=== PATIENT | male | born 1950 | race African-American/Black ===

== ENCOUNTER 2016-10-29 21:07 | Inpatient (IN) | payer BC ==
--- NOTE | ~2016-10-29 | CR72 ---
[facility] A Service of [place] & [facility] RADIOLOGY TEXT RESULTS PATIENT: GEOVANNI ROA LOCATION: [facility] 56- : [birth year] UNIT #: [id number] AGE: [address]: Saranya Yuen MD SEX: M ORDER DR: [id number] [facility] [address] [place], [place] [address] [id number] I MR#: [id number] #: [id number] NAME: GEOVANNI ROA. : 1950 SEX: M STUDY DATE/TIME: 11/01/2016 14:49 UNIT: [facility] ROOM: [facility] STUDY DESCRIPTION: CR Chest Single View Portable Attending Physician: Saranya Yuen M.D. Ordering Physician: Saranya Yuen M.D. Primary Care Physician: Ta Simpson M.D. MEDICAL IMAGING REPORT This report is preliminary unless electronic signature is present EXAM Portable chest HISTORY Shortness of air today. FINDINGS Mild cardiac enlargement is similar to 10/29/2016. Pulmonary vascularity is normal. Mild interstitial prominence in the left upper lobe has increased, and there has been partial clearing of interstitial infiltrate in the right lower lung. Sternotomy and CABG markers and mediastinal clips. IMPRESSION 1. Mild interval increase in interstitial prominence in the left upper lobe and partial clearing of the right lower lung as compared to 10/29/2016. 2. Remainder of the chest is stable including mild cardiac enlargement. Dictated by... Bladimir Hobson M.D. THIS IS AN ELECTRONICALLY VERIFIED REPORT Bladimir Hobson M.D. at 11/01/2016 10:38 PM ALEXIAL/brittney TD: 11/01/2016 18:54 JOB #: [id number] MEDICAL IMAGING REPORT Page 1 of 1 COPY
--- NOTE | ~2016-10-29 | EKG ---
PATIENT: GEOVANNI ROA UNIT #: [id number] Ventricular Rate: 72 BPM Atrial Rate: 72 BPM P-R Interval: 160 ms QRS Duration: 98 ms Q-T Interval: 424 ms QTC Calculation(Bezet): 464 ms P [place]: 39 degrees Calculated R [place]: -32 degrees Calculated T [place]: -174 degrees Diagnosis Line: Normal sinus rhythm Diagnosis Line: Left axis deviation Diagnosis Line: Voltage criteria for left ventricular hypertrophy Diagnosis Line: Marked T wave abnormality, consider anterolateral Diagnosis Line: ischemia Diagnosis Line: Prolonged QT Diagnosis Line: Abnormal ECG Diagnosis Line: When compared with ECG of 31-OCT-2016 05:33, Diagnosis Line: No significant change was found Diagnosis Line: Confirmed by ALEC ANDERSON MD ([id number]) on 11/02/2016 Diagnosis Line: 6:37:37 PM INTERPRETING MD: MONICA RANGEL
--- NOTE | ~2016-10-29 | EKG ---
PATIENT: GEOVANNI ROA UNIT #: [id number] Ventricular Rate: 99 BPM Atrial Rate: 99 BPM P-R Interval: 142 ms QRS Duration: 96 ms Q-T Interval: 332 ms QTC Calculation(Bezet): 426 ms P [place]: 63 degrees Calculated R [place]: -20 degrees Calculated T [place]: -69 degrees Diagnosis Line: Normal sinus rhythm Diagnosis Line: Possible Left atrial enlargement Diagnosis Line: Left ventricular hypertrophy Diagnosis Line: Cannot rule out Septal infarct , age undetermined Diagnosis Line: ST and T wave abnormality, consider inferior Diagnosis Line: ischemia Diagnosis Line: ST and T wave abnormality, consider anterolateral Diagnosis Line: ischemia Diagnosis Line: Abnormal ECG Diagnosis Line: When compared with ECG of 02-NOV-2016 05:30, Diagnosis Line: (unconfirmed) Diagnosis Line: Minimal criteria for Septal infarct are now Diagnosis Line: Present Diagnosis Line: Inverted T waves have replaced nonspecific T wave Diagnosis Line: abnormality in Inferior leads Diagnosis Line: T wave inversion less evident in Lateral leads Diagnosis Line: Confirmed by ALEC ANDERSON MD ([id number]) on 11/02/2016 Diagnosis Line: 6:50:52 PM INTERPRETING MD: MONICA RANGEL
--- NOTE | ~2016-10-29 | EKG ---
PATIENT: GEOVANNI ROA UNIT #: [id number] Ventricular Rate: 85 BPM Atrial Rate: 85 BPM P-R Interval: 142 ms QRS Duration: 92 ms Q-T Interval: 390 ms QTC Calculation(Bezet): 464 ms P [place]: 55 degrees Calculated R [place]: -35 degrees Calculated T [place]: 177 degrees Diagnosis Line: Normal sinus rhythm Diagnosis Line: Left axis deviation Diagnosis Line: T wave abnormality, consider anterolateral Diagnosis Line: ischemia Diagnosis Line: Prolonged QT Diagnosis Line: Abnormal ECG Diagnosis Line: When compared with ECG of 29-OCT-2016 21:45, Diagnosis Line: PAC's no t present Diagnosis Line: T wave inversion less evident in Inferior leads Diagnosis Line: Confirmed by DAPHNE ELI MD ([id number]) on Diagnosis Line: 10/31/2016 10:12:08 PM INTERPRETING MD: WEST[place]
--- NOTE | ~2016-10-29 | TOC ---
Unit #: [id number] #: [id number] Patient: GEOVANNI ROA [id number] [address] [address] [id number] I MR#: [id number] NAME: GEOVANNI ROA. ROOM: 563 Age: 66 Sex: M Admission Date: 10/30/2016 : 1950 Attending Physician: Saranya Yuen M.D. Primary Care Physician: Ta Simpson M.D. TRANSFER OF CARE SUMMARY PRINCIPAL DIAGNOSES 1. Acute systolic congestive heart failure with ejection fraction of 15 to 20%. 2. Coronary artery disease, status post stenting and percutaneous coronary intervention of the obtuse marginal and proximal left circumflex, first diagonal and ramus branch. 3. Hypertension, uncontrolled. 4. Diabetes mellitus type 2, noninsulin requiring, uncontrolled with hemoglobin A1c of 5.8. 5. Transaminitis likely secondary to passive liver congestion. 6. Viral hepatitis panel is pending. 7. Moderate mitral regurgitation. 8. Moderate aortic regurgitation. 9. Chronic obstructive pulmonary disease 10. Pulmonary hypertension. 11. Tobaccoism. 12. Post cath hypotension, likely medication induced. 13. Mild protein malnutrition. CONSULTANTS Dr. Sheffield of cardiology. PROCEDURES 1. 2D echocardiogram on 10/30/2016 with ejection fraction of 15% to 20%, severe global hypokinesis of left ventricle noted. Mild to moderately dilated left atrium and mild to moderately enlarged right atrium noted. Mild to moderate aortic regurgitation noted. Moderate mitral regurgitation noted. Mild to moderate tricuspid regurgitation. Right ventricular systolic pressure of 44 mmHg. 2. Heart cath on 10/31/2016 with a normal left main. LAD had a stenosis in the mid region of approximately 80%. First diagonal had 90% stenosis. Left circumflex was 100% occluded distally. First obtuse marginal had 90% stenosis. Right coronary artery was dominant with a 90% stenosis in the mid region. SVG graft to RCA was 100% occluded. SVG graft to first diagonal 100% occluded. SVG graft to first obtuse marginal 100% occluded. WOODY to LAD was patent. Ejection fraction was 20%. 3. Heart cath on 11/02/2016 with stenting an PCI of the first obtuse marginal and left circumflex with subsequent 0% stenosis, stenting and PCI of first diagonal with subsequent 0% stenosis and stenting and PCI of ramus with subsequent 0% stenosis. 4. Chest x-ray on 10/29/2016 with interstitial infiltrate in the right lower lung in left mid to lower lung. 5. Chest x-ray on 11/01/2016 with increase in prominence of the left upper Unit #: [id number] #: [id number] Patient: GEOVANNI ROA A lobe and partial clearing of right lower lung. CLINICAL HISTORY AND HOSPITAL COURSE Mr. Roa is a nice 66-year-old -Gabones[place] male who presents to the emergency department with shortness of breath and lower extremity swelling. Please refer to H and P for further details. In the emergency department, the patient was found to have clinically pulmonary edema, which was confirmed on chest x-ray. BNP was also found to be elevated greater than 2600. The patient was subsequently admitted. The patient was started on empiric diuretics, initially AYDIN inhibitor, beta-sagar and cardiology was consulted. Patient has had angioedema with AYDIN inhibitor and he was subsequently started on Entresto. 2D echocardiogram was done revealing significantly decreased ejection fraction. Patient has been maintained on IV diuretics in addition to medication and CHF has essentially resolved. The patient also has a history of coronary artery disease, status post grafting. Given his significant CHF, in addition to her mildly elevated troponin, upon presentation it was decided for patient to undergo heart cath. He initially underwent heart cath on 10/31/2016 with findings as noted above and initially plans were for medical management only. However, after further discussion with patient, in addition to his severe degree of congestive heart failure, he underwent second heart cath with stenting and PCI on 11/02/2016. Post procedure, he had some mild hypotension, which was likely a combination of diuretic induced in addition to his new Entresto. Medications are currently being adjusted. He was placed on dopamine post procedure. This is currently being titrated and blood pressure will be monitored closely upon discontinuation. Patient does have underlying COPD and he has been counseled regarding tobacco abuse, which he did quit approximately a week ago. Patient also has underlying diabetes but sugars here remained very stable. I do not personally feel he needs metformin upon discharge, particularly given is not contraindicated with his significant congestive heart failure. Patient also has a history of hypertension, which was initially uncontrolled upon presentation; however, medications have been adjusted as above. He had some hypotension and blood pressure is not stable. Patient also had some mild transaminitis and with diuresis this is improved. Viral hepatitis panel is currently pending. I anticipate patient will be discharged home in the next 24-48 hours pending stability of blood pressure. Further hospital course to be dictated as an addendum. Dictated by... Saranya Yuen M.D. JOSE/catalina TD: 11/03/2016 12:29 JOB #: [id number] Unit #: [id number] #: [id number] Patient: GEOVANNI ROA TRANSFER OF CARE SUMMARY Page 1 of 1 X Saranya Yuen MD X TRANSFER OF CARE SUMMARY
--- NOTE | ~2016-10-29 | EKG ---
PATIENT: GEOVANNI ROA UNIT #: [id number] Ventricular Rate: 55 BPM Atrial Rate: 55 BPM P-R Interval: 144 ms QRS Duration: 96 ms Q-T Interval: 438 ms QTC Calculation(Bezet): 419 ms P [place]: 55 degrees Calculated R [place]: -38 degrees Calculated T [place]: -134 degrees Diagnosis Line: Sinus bradycardia Diagnosis Line: Left axis deviation Diagnosis Line: Minimal voltage criteria for LVH, may be normal Diagnosis Line: variant Diagnosis Line: ST and Marked T wave abnormality, consider Diagnosis Line: anterolateral ischemia Diagnosis Line: Abnormal ECG Diagnosis Line: When compared with ECG of 02-NOV-2016 10:39, Diagnosis Line: Vent. rate has decreased BY 44 BPM Diagnosis Line: T wave inversion more evident in Anterior leads Diagnosis Line: Confirmed by ALEC ANDERSON MD ([id number]) on 11/05/2016 Diagnosis Line: 4:20:04 PM INTERPRETING MD: MONICA RANGEL
--- NOTE | ~2016-10-29 | DS ---
Unit #: [id number] #: [id number] Patient: GEOVANNI ROA [id number] [address] [address] [id number] I MR#: [id number] NAME: GEOVANNI ROA. ROOM: 563 Age: 66 Sex: M Admission Date: 10/30/2016 : 1950 Discharge Date: Attending Physician: Saranya Yuen M.D. Primary Care Physician: Ta Simpson M.D. DISCHARGE SUMMARY ADDENDUM Please see Transfer of Care note dictated by Dr. Yuen. HOSPITAL COURSE Since November 03, 2016, patient was not discharged at that time because of hypotension from Entresto. The patient was started on dopamine. Currently, dopamine has been titrating off. The patient will be discharged later today after seen by cardiology. Currently, no chest pain, no shortness of breath. Lungs are clear. Regular rhythm, no murmurs. RECENT LAB DATA Glucose 126. Hepatitis negative. BNP 341. Creatinine 1.0. ALLERGIES Lisinopril. DISCHARGE MEDICATIONS 1. Entresto , one tablet p.o. b.i.d. 2. Metformin 500 p.o. b.i.d. 3. Lopressor 24 p.o. b.i.d. 4. Lasix 40 p.o. b.i.d. 5. Aspirin 81 daily. 6. Plavix 75 daily. 7. Spironolactone 25 daily. The patient will be discharged home later today after seen by cardiology. Prescriptions as per cardiology. Follow with family physician in one week time. Discharge time taken is 32 minutes. Dictated by... Rodo Burns TD: 11/04/2016 12:30 JOB #: [id number] Unit #: [id number] #: [id number] Patient: GEOVANNI ROA DISCHARGE SUMMARY Page 1 of 1 X Alondra Dubon MD DISCHARGE SUMMARY
--- NOTE | ~2016-10-29 | EKG ---
PATIENT: GEOVANNI ROA UNIT #: [id number] Ventricular Rate: 86 BPM Atrial Rate: 86 BPM P-R Interval: 152 ms QRS Duration: 90 ms Q-T Interval: 390 ms QTC Calculation(Bezet): 466 ms P [place]: 38 degrees Calculated R [place]: -4 degrees Calculated T [place]: -151 degrees Diagnosis Line: Sinus rhythm with frequent and consecutive Diagnosis Line: Premature ventricular complexes and Fusion Diagnosis Line: complexes Diagnosis Line: Possible Left atrial enlargement Diagnosis Line: Left ventricular hypertrophy Diagnosis Line: When compared with ECG of 22-APR-2012 22:24, Diagnosis Line: Confirmed by SURY UNGER MD ([id number]) on Diagnosis Line: 10/30/2016 3:41:43 PM INTERPRETING MD: CORNEL RANGEL
--- NOTE | ~2016-10-29 | CR72 ---
[facility]. [facility] A Service of [facility] & [facility] RADIOLOGY TEXT RESULTS PATIENT: GEOVANNI ROA LOCATION: [place] [id number] : [birth year] UNIT #: [id number] AGE: [address]: Saranya Yuen MD SEX: M ORDER DR: [id number] [place] [id number] I MR#: [id number] Acc #: [id number] NAME: GEOVANNI ROA. : 1950 SEX: M STUDY DATE/TIME: 10/29/2016 21:35 UNIT: SEDOF ROOM: [facility] STUDY DESCRIPTION: CR Chest Single View Portable Attending Physician: Mary Trevino M.D. Ordering Physician: Chele Atkinson M.D. Primary Care Physician: Ta Simpson M.D. MEDICAL IMAGING REPORT This report is preliminary unless electronic signature is present. EXAM Portable chest HISTORY Shortness of air today. FINDINGS Moderate interstitial infiltrate in the medial right lower lung and mild interstitial infiltrate in the left [id number] lung are new findings compared to 05/01/2012. Considerations include interstitial pneumonia versus edema or scarring. Minimal fluid or pleural thickening at the right base. Mild cardiac enlargement. Stable chronic pleural thickening in the lung apices. Dictated by... Bladimir Hobson M.D. THIS IS AN ELECTRONICALLY VERIFIED REPORT Bladimir Hobson M.D. at 10/30/2016 3:06 PM DFL/fely TD: 10/30/2016 08:16 JOB #: [id number] MEDICAL IMAGING REPORT Page 1 of 1
--- NOTE | ~2016-10-29 | HP ---
Unit #: [id number] #: [id number] Patient: GEOVANNI ROA [id number] [address] [place], [place] [address] [id number] I MR#: [id number] NAME: GEOVANNI ROA. ROOM: 563 Age: 66 Sex: M Admission Date: 10/30/2016 : 1950 Attending Physician: Saranya Yuen M.D. Primary Care Physician: Ta Simpson M.D. HISTORY AND PHYSICAL CHIEF COMPLAINT Shortness of breath. HISTORY OF PRESENT ILLNESS Mr. Roa is a nice 66-year-old male with a history of coronary artery disease status post coronary artery bypass grafting who presents to the ER for above. The patient states he began feeling short of breath approximately 5 days ago. He noticed his shortness of breath initially while he was standing on his feet at work being active. There was no associated chest pain at that time. However, he noted recurrent shortness of breath on Sunday and worse on Sunday and began developing lower extremity edema, as well. He did have a cough that was nonproductive. He did have one episode of sweating but did not take his temperature. He endorses some orthopnea and noted he was having some chest pressure substernally last evening when he decided to present to the ER. He denies any sick contacts. Upon presentation, the patient was afebrile, and blood pressure was elevated at 154/118. In the emergency department the patient underwent chest x-ray revealing questionable left lower lobe infiltrate consistent with pneumonia versus pulmonary edema. He was given 325 mg of aspirin, 10 mg of Lopressor IV, DuoNeb treatment, 40 mg of Lasix, 2 grams of Rocephin IV, 500 azithromycin p.o., sublingual nitroglycerin and referred for admission. He states his shortness of breath is better after urinating. As noted above, he does have a history of coronary artery disease and has not routinely been seen by a ip network architect since his heart surgery. PAST MEDICAL HISTORY 1. Coronary artery disease status post coronary artery bypass grafting x3. No details are available. This was done in 2011 at [facility]. 2. Diabetes mellitus type 2. 3. Hypertension. 4. Tobaccoism. 5. Questionable congestive heart failure. Patient states he may have been diagnosed with this when he had his heart attack 5 years ago. PAST SURGICAL HISTORY 1. Coronary artery bypass grafting x3. 2. Hernia repair per record review. ALLERGIES No known drug allergies. HOME MEDICATIONS Unit #: [id number] #: [id number] Patient: GEOVANNI ROA Metformin, unknown dose. FAMILY HISTORY Family history is significant for coronary artery disease in the patient's mother and brother. Both of them had coronary artery bypass grafting x3. Diabetes and hypertension also run in the family. No family history of cancers. SOCIAL HISTORY Patient continues to smoke a pack of cigarettes per day and has for at least 20 years. He did quit last week when he started feeling short of breath. He has not drunk any alcohol since his heart surgery in 2011. Prior to that, he was a social drinker only. 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 REVIEW OF SYSTEMS Did have one episode of sweating. Denies any recent weight gain or weight loss. Denies any vision change or sore throat. Denies any palpitations but did have an episode of chest pressure, which is now resolved. Shortness of breath and orthopnea as noted. Cough is nonproductive. Denies any constipation, diarrhea, melena, hematochezia, hematuria, dysuria, new tingling, numbness, weakness of extremities. Denies any falls at home. No suicidal or homicidal ideation. No new joint pain. A 10-point review of systems was done and was negative. PHYSICAL EXAMINATION VITAL SIGNS: Temperature 97.6, blood pressure 154/100, pulse rate 86, respiratory rate 18, oxygen saturation 96% on room air. GENERAL: The patient is awake, alert. He is oriented x3 and very pleasant. HEENT: Pupils are equal, round and reactive to light bilaterally. Anicteric sclera. No conjunctival pallor. Oropharynx with moist mucous membranes. No erythema or exudate. Dentition is poor, and several teeth are missing. NECK: Supple. No lymphadenopathy. No thyromegaly. No appreciable JVD. HEART: Regular rate and rhythm without murmur, rub or gallop. LUNGS: Diminished bilaterally with significant crackles in the bases bilaterally. Occasional rhonchi in the bases, as well. ABDOMEN: Soft, nontender and nondistended. Positive bowel sounds. No appreciable hepatosplenomegaly. EXTREMITIES: No cyanosis, clubbing or edema. Pedal pulses 2/4. SKIN: Warm, moist without rash. There are a few healing scabs on the lower extremities. NEUROLOGIC: Cranial nerves II-XII intact. Sensation, strength and deep tendon reflexes are all normal in upper and lower extremities bilaterally. Gait was not assessed. MUSCULOSKELETAL: No significant joint abnormalities noted. No joint erythema. No significant joint hypertrophy. PSYCHIATRIC: Appropriate affect. Alert and oriented x3. DIAGNOSTIC STUDIES LABORATORY: Lab work done in the emergency department reveals initial troponin of less than 0.05, and this morning it is now elevated mildly at 0.11. INR is 1.2. CBC, both last evening and this morning, are normal with a white blood cell count of 8.3, hemoglobin 14, platelet count 264,000. Sodium is 139, potassium 3.6, chloride 104, bicarb 26, BUN 15, creatinine 1.1 (up from 0.9 last evening), glucose of 89. LFTs last evening are mildly elevated with an AST of 83, ALT of 125 and alkaline Unit #: [id number] #: [id number] Patient: GEOVANNI ROA A phosphatase of 151, albumin was normal at 3.5 and bilirubin was also normal. BNP done last evening is elevated at 2,657. IMAGING: Chest x-ray done in the emergency department reveals interstitial infiltrate in the right lower lung and left mjp-vb-ovyod lung. Mild cephalization is also noted on chest x-ray. Dictated by Saranya Yuen M.D. JOSE/agatha TD: 10/30/2016 10:03 JOB #: [id number] DIAGNOSTIC STUDIES (CONTINUED) CARDIOVASCULAR: EKG reveals normal sinus rhythm with PVCs. There is a left bundle branch block. There is T wave inversion noted in V1-V4, and patient also has ST segment depression in V4-V6, II, III, and AVF. There is no comparison EKG. ASSESSMENT 1. Acute pulmonary edema likely consistent with congestive heart failure exacerbation. 2. Elevated troponin of undetermined significance in combination with abnormal EKG. 3. Hypertension, uncontrolled. 4. Coronary artery disease, status post coronary artery bypass grafting x3. 5. Transaminitis. 6. Diabetes mellitus type 2. 7. Tobaccoism. 8. Probable chronic obstructive pulmonary disease. PLAN 1. Will admit patient to inpatient status with telemetry. 2. I will initiate Lasix 20 mg IV q.12 hours, obtain strict I/Os and a two-dimensional echocardiogram, and ask Cardiology to further evaluate the patient. I am also going to initiate AYDIN inhibitor and obtain records from [facility] in regards to his history of surgery. 3. Will check serial troponins, provide nitroglycerin, aspirin, and morphine, and again, have Cardiology follow. 4. In regards to hypertension, initiate AYDIN inhibitor, provide hydralazine on p.r.n. basis, and will initiate further diuretics and/or beta sagar as testing and further monitoring indicates. 5. Will follow LFT levels and obtain viral hepatitis panel. 6. Will hold metformin for now. Will obtain insulin and Accu-Cheks, in addition to a hemoglobin A1c. 7. Will obtain fasting lipid panel in the morning. 8. Lovenox for DVT prophylaxis. Will increase this dosing if necessary. 1. Dictated by Saranya Yuen M.D. JOSE/frederick Unit #: [id number] #: [id number] Patient: GEOVANNI ROA TD: 10/30/2016 17:03 JOB #: [id number] HISTORY AND PHYSICAL Page 1 of 1 X Saranya Yuen MD X HISTORY AND PHYSICAL
--- NOTE | ~2016-10-29 | EKG ---
PATIENT: GEOVANNI ROA UNIT #: [id number] Ventricular Rate: 80 BPM Atrial Rate: 80 BPM P-R Interval: 154 ms QRS Duration: 94 ms Q-T Interval: 392 ms QTC Calculation(Bezet): 452 ms P [place]: 37 degrees Calculated R [place]: -37 degrees Calculated T [place]: -174 degrees Diagnosis Line: Normal sinus rhythm Diagnosis Line: Possible Left atrial enlargement Diagnosis Line: Left axis deviation Diagnosis Line: Left ventricular hypertrophy Diagnosis Line: T wave abnormality, consider anterolateral Diagnosis Line: ischemia Diagnosis Line: Abnormal ECG Diagnosis Line: Diagnosis Line: Confirmed by ALEC ANDERSON MD ([id number]) on 11/02/2016 Diagnosis Line: 6:46:33 PM INTERPRETING MD: MONICA RANGEL
--- NOTE | ~2016-10-29 | CO ---
Unit #: [id number] #: [id number] Patient: GEOVANNI ROA [id number] [address] [place], [place] [address] [id number] MR#: [id number] NAME: GEOVANNI ROA. ROOM: 563 Age: 66 Sex: M Admission Date: 10/30/2016 : 1950 Attending Physician: Saranya Yuen M.D. Primary Care Physician: Ta Simpson M.D. CONSULTATION REPORT REASON FOR CONSULTATION Acute congestive heart failure and chest pain. HISTORY OF PRESENT ILLNESS This is a 66-year-old male with a history of having coronary artery bypass graft back in 2013. He thinks he may have had a stress test about a year ago over at office by [facility], Dr. Zhang. He was sent there by his family doctor to have an echo and a stress test. He believes that the tests were normal. He has been doing fairly well. He has a history of being noncompliant with his blood pressure medication. He says there was one medication the doctor gave him that was 45 dollars a month, he could not afford it, so he is in the process of getting another medication, which was more affordable. He is unsure of the name. The patient states that he started to feel short of breath about three days ago. 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 He said he was doing his work and he was feeling more short of breath especially with exertion. He came on from work Sunday afternoon. He said he could not lie down, he just was feeling so short of breath and fatigue. He said he had to sleep up in a chair. He came in the next day for evaluation due to the persistent dyspnea. He said he was having a little left anterior chest wall pain without any radiation. He denies any palpitations. No dizziness, presyncope, or syncope. In the emergency room, the patient's blood pressure was 154/118, heart rate was 53, respirations 22, temperature 97.6, O2 saturations 99% on room air. His initial labs; his creatinine is 1.1, potassium 3.6. Cardiac enzymes were negative and then the later troponin came back 0.11. His CBC is normal. His chest x-ray showed moderate interstitial infiltrate in the medial right lower lung and mild interstitial infiltrate in the left mid to lower lungs, could be interstitial pneumonia versus edema. EKG shows sinus rhythm. He does have an intraventricular conduction delay, borderline right bundle-branch block, left ventricular hypertrophy, left atrial enlargement. The patient has received 325 aspirin, 10 mg of IV Lopressor, 40 of IV Lasix and started on IV antibiotics for possible pneumonia. Cardiology has been consulted to assist with evaluation and management. The patient also reports that he had some lip swelling when he was taking a medication, the daughter was trying to find out if it is an AYDIN inhibitor, but we are holding off giving any AYDIN inhibitors because of his reported adverse reaction. Unit #: [id number] #: [id number] Patient: GEOVANNI ROA A PAST MEDICAL HISTORY 1. Diabetes mellitus, type 2. 2. Hypertension. 3. Hyperlipidemia. 4. In 2011, had coronary artery bypass graft at [facility], details unavailable. 5. In 2013, a stress test, which revealed ejection fraction of 49%. No ischemia. No myocardial infarction. 6. Nicotine abuse. 7. Noncompliance. PAST SURGICAL HISTORY In 2011, had a coronary artery bypass graft. MEDICATION Glucophage, dosage and frequency unavailable. ALLERGIES Probable AYDIN inhibitor, causes swelling. SOCIAL HISTORY The patient lives with his daughter. 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 He quit smoking two weeks ago, but was smoking half a pack to a pack a day. He has been smoking most of his adult life. Denies any alcohol or illicit drug abuse. FAMILY HISTORY The patient's mother had coronary artery bypass graft and in her late 60s. He has a younger brother, who has had coronary artery bypass graft and in his 50s. His father of other causes. REVIEW OF SYSTEMS See details in HPI. PHYSICAL EXAMINATION GENERAL: Mr. Roa is a 66-year-old male, in no acute respiratory distress. He is awake, alert, and oriented. VITAL SIGNS: Blood pressure currently is 135/90, heart rate is 84, respirations 18, temperature is 98.1, and O2 saturations 95% on room air. NECK: Trachea midline. No thyromegaly or lymphadenopathy. Normal carotid upstrokes. No jugular venous distention. HEART: S1 and S2. Regular rate and rhythm. No clicks, murmurs, or rubs. LUNGS: Diminished with some fine rales in the bases. ABDOMEN: Soft and nontender. EXTREMITIES: Pedal pulses are palpable. 1+ pedal edema. DIAGNOSTIC STUDIES LABORATORY RESULTS: Glucose is 89, BUN 15, creatinine 1.1, eGFR is 81.2, sodium 139, potassium 3.6, chloride 104, CO2 of 26, calcium is 9.1, magnesium is 1.9, total protein 7.2, albumin 3.5, AST 83, ALT 125, alkaline phosphatase is 151. WBCs 8.3, hemoglobin 14.0, hematocrit 43.8, and platelets is 264. Initial cardiac enzymes; CK-MB is 4.0, troponin is less than 0.05. CK-MB is 3.8, troponin less than 0.05 and later his cardiac enzymes; CK is 192, troponin 0.22. BNP is 2657. INR is 1.2. IMAGING STUDIES: Chest x-ray shows moderate interstitial infiltrate in the right lower lobe and mild interstitial infiltrate in the left mid to lower lungs, questionable interstitial pneumonia versus edema. Unit #: [id number] #: [id number] Patient: GEOVANNI ROA A EKG shows normal sinus rhythm with frequent PACs, left ventricular hypertrophy, left atrial enlargement, borderline right bundle-branch block. IMPRESSION 1. Acute systolic congestive heart failure. 2. Acute coronary syndrome-chest pain and mildly elevated troponin. 3. Elevated liver function tests. 4. History of diabetes mellitus. 5. Poorly controlled hypertension. 6. Hyperlipidemia. 7. Nicotine abuse. 8. Noncompliance. 9. History of coronary artery disease, CABG in [address] [facility]. PLAN 1. Cardiology consult to assist with evaluation and management. The patient's last EF documented was 49%, likely has some systolic congestive heart failure. Continue diuresis, IV Lasix. Strict intake and output. Daily weight. Monitor labs, especially BUN, creatinine, and electrolytes, and supplement when needed. 2. The patient is currently on aspirin and daily dose of Lovenox. Continue to monitor couple more sets of cardiac enzymes to make sure they are trending down. We will start the patient on scheduled dose of metoprolol 25 mg p.o. b.i.d. to help with blood pressure and also because he has history of CAD. 3. Obtain a fasting lipid profile, CHF and evaluate. 4. Increase his Lovenox to 1 mg/kg subcu b.i.d. 5. The patient states he believes he is allergic to some type of medicine, they do have listed lisinopril as an allergy. His daughter is trying to find out from the pharmacy exactly the name of the medication. It caused his lips to swell. Obtain a 2D echo to evaluate for LV function and valves. 6. Discussed with the patient compliancy issues. We assured him we will try to get him on medication that is affordable. We may have to get the foster care social worker to assist with the cost of his medication. 7. We will obtain the records from [facility] when he had his bypass surgery and his last 2D echo for comparison. 8. Further recommendations pending per Dr. Abrams. Since the patient has come in with congestive heart failure, his troponin is trending upward and he had some chest pain. It is discussed with the patient the need to have a cardiac catheterization to further evaluate his ischemic heart disease and in lieu that he has been noncompliant with lot of his medications. 9. Discussed with the patient risks and benefits including risk of bleeding, myocardial infarction, stroke and even . The patient verbalizes understanding and agrees to proceed. 10. Further recommendations pending per Dr. Abrams. Thank you very much for allowing us to assist in care. Dictated by... Osmany Holland/flynn TD: 10/31/2016 14:27 JOB #: [id number] Unit #: [id number] #: [id number] Patient: GEOVANNI ROA CONSULTATION REPORT Page 1 of 1 X Mamta Chu APRN CONSULTATION REPORT
[~2016-10-29 21:07] MED LIST: CARTIA XT PO; GLUCOPHAGE XR500 MG PO; IMURAN50 MG PO; NILSTAT PO; PREDNISONE PO
[2016-10-29] MEDS ORDERED: METFORMIN (21:15)
[2016-10-29 21:40] LABS: BASOPHIL# 0.1 X10e3 (0-0.3); BASOPHIL% 0.7 % (0-2.5); EOSINOPHIL# 0.1 X10e3 (0-0.7); EOSINOPHIL% 0.8 % (0.0-7.0); HEMATOCRIT 42.9 % (38.0-50.0); HEMOGLOBIN 14.3 gm/dL (13.0-16.0); LYMPHOCYTE# 0.9 X10e3 (1.0-3.5); LYMPHOCYTE% 10.3 % (17.0-45.0); MEAN CELL VOLUME 88.3 FL (83-96); MEAN CORPUSCULAR HEMOGLOBIN 29.4 PG (28-34); MEAN CORPUSCULAR HGB CONC 33.3 g/dL (30-36); MEAN PLATELET VOLUME 8.8 FL (6.5-11.5); MONOCYTE# 0.7 X10e3 (0-1.0); MONOCYTE% 8.7 % (3.0-12.0); NEUTROPHIL# 6.8 X10e3 (1.5-7.1); NEUTROPHIL% 79.5 % (40-75); PLATELET COUNT 263 X10e3 (140-420); RED BLOOD COUNT 4.86 X10e (3.90-5.60); RED CELL DISTRIBUTION WIDTH 14.4 % (11.0-15.5); WHITE BLOOD COUNT 8.5 X10e3 (4.0-10.5)
[2016-10-29 21:53] LABS: INR 1.2; PROTHROMBIN TIME (PATIENT) 13.5 SECONDS (9.5-12.4)
[2016-10-29 21:57] LABS: POC - CKMB 3.8 ng/mL (0.0-7.9); POC - TROPONIN <0.05 ng/mL (<=0.05)
[2016-10-29 22:00] LABS: PARTIAL THROMBOPLASTIN TIME 28.4 SECONDS (25.6-38.1)
[2016-10-29 22:03] LABS: ALBUMIN SERUM 3.5 g/dL (3.5-5.0); BILIRUBIN, DIRECT 0.1 mg/dL (0.0-0.2); BILIRUBIN,INDIRECT 0.5 mg/dL (0.0-0.9); BILIRUBIN,TOTAL 0.6 mg/dL (0.2-2.0); BUN/CREATININE RATIO 14.44; CALCIUM SERUM 9.2 mg/dL (8.4-10.2); CREATININE SERUM 0.9 mg/dL (0.6-1.4); GLOM FILT RATE Estimated 103.5 mL/min (>60); POTASSIUM 3.8 mmol/L (3.5-5.1); PROTEIN TOTAL SERUM 7.2 g/dL (6.0-8.3)
[2016-10-29 23:02] LABS: DIFF IND NO
[2016-10-30 00:02] LABS: POC - TROPONIN <0.05 ng/mL (<=0.05)
[2016-10-30] MEDS ORDERED: GLUCOPHAGE500 MG PO (02:15)
[2016-10-30 07:03] LABS: BASOPHIL# 0.1 X10e3 (0-0.3); BASOPHIL% 0.6 % (0-2.5); EOSINOPHIL# 0.1 X10e3 (0-0.7); EOSINOPHIL% 1.6 % (0.0-7.0); HEMATOCRIT 43.8 % (38.0-50.0); LYMPHOCYTE# 1.2 X10e3 (1.0-3.5); LYMPHOCYTE% 14.9 % (17.0-45.0); MEAN CELL VOLUME 89.8 FL (83-96); MEAN CORPUSCULAR HEMOGLOBIN 28.7 PG (28-34); MEAN CORPUSCULAR HGB CONC 31.9 g/dL (30-36); MEAN PLATELET VOLUME 9.2 FL (6.5-11.5); MONOCYTE# 0.8 X10e3 (0-1.0); NEUTROPHIL# 6.1 X10e3 (1.5-7.1); NEUTROPHIL% 72.9 % (40-75); PLATELET COUNT 264 X10e3 (140-420); RED BLOOD COUNT 4.88 X10e (3.90-5.60); RED CELL DISTRIBUTION WIDTH 14.8 % (11.0-15.5); WHITE BLOOD COUNT 8.3 X10e3 (4.0-10.5)
[2016-10-30 07:06] LABS: DIFF IND NO
[2016-10-30 07:37] LABS: BUN/CREATININE RATIO 13.63; CALCIUM SERUM 9.1 mg/dL (8.4-10.2); CREATININE SERUM 1.1 mg/dL (0.6-1.4); GLOM FILT RATE Estimated 81.2 mL/min (>60); MAGNESIUM 1.9 mg/dL (1.6-3.0); POTASSIUM 3.6 mmol/L (3.5-5.1)
[2016-10-30 12:22] LABS: CHOLESTEROL 147 mg/dL (0-200); HDL CHOLESTEROL 34 mg/dL (29-75); LDL CHOLESTEROL 96 mg/dL ([, -130]); LDL/HDL RATIO 3 RATIO (0-4); TRIGLYCERIDES 84 mg/dL (10-160)
[2016-10-31 01:04] LABS: URINE APPEARANCE CLEAR; URINE BILIRUBIN NEG (NEG); URINE BLOOD NEG (NEG); URINE COLOR YELLOW; URINE GLUCOSE NEG (NEG); URINE KETONE NEG (NEG); URINE LEUKOCYTE ESTERASE NEG (NEG); URINE NITRATE NEG (NEG); URINE PH 5.5 (5-8); URINE PROTEIN 2+ (NEG); URINE SPECIFIC GRAVITY 1.024 (1.003-1.035)
[2016-10-31 01:05] LABS: URINE BACTERIA AUWI NEG (NEGATIVE); URINE SQUAMOUS EPITHELIAL CELL NONE SEEN /[HPF]; UWBCS1 AUWI 0-2 (0-5)
[2016-10-31 05:51] LABS: HEMATOCRIT 41.8 % (38.0-50.0); HEMOGLOBIN 13.3 gm/dL (13.0-16.0); MEAN CELL VOLUME 89.7 FL (83-96); MEAN CORPUSCULAR HEMOGLOBIN 28.5 PG (28-34); MEAN CORPUSCULAR HGB CONC 31.8 g/dL (30-36); MEAN PLATELET VOLUME 9.1 FL (6.5-11.5); RED BLOOD COUNT 4.66 X10e (3.90-5.60); RED CELL DISTRIBUTION WIDTH 14.3 % (11.0-15.5); WHITE BLOOD COUNT 7.6 X10e3 (4.0-10.5)
[2016-10-31 06:20] LABS: INR 1.1; PARTIAL THROMBOPLASTIN TIME 28.4 SECONDS (23.5-31.3); PROTHROMBIN TIME (PATIENT) 11.4 SECONDS (9.6-11.5)
[2016-10-31 06:54] LABS: BILIRUBIN,TOTAL 0.6 mg/dL (0.2-2.0); CALCIUM SERUM 8.6 mg/dL (8.4-10.2); GLOM FILT RATE Estimated 91.1 mL/min (>60); POTASSIUM 4.3 mmol/L (3.5-5.1); PROTEIN TOTAL SERUM 6.2 g/dL (6.0-8.3)
[2016-11-01 06:37] LABS: HEMATOCRIT 42.3 % (38.0-50.0); HEMOGLOBIN 13.4 gm/dL (13.0-16.0); MEAN CELL VOLUME 89.9 FL (83-96); MEAN CORPUSCULAR HEMOGLOBIN 28.6 PG (28-34); MEAN CORPUSCULAR HGB CONC 31.8 g/dL (30-36); MEAN PLATELET VOLUME 8.9 FL (6.5-11.5); RED BLOOD COUNT 4.7 X10e (3.90-5.60); RED CELL DISTRIBUTION WIDTH 14.6 % (11.0-15.5); WHITE BLOOD COUNT 8.3 X10e3 (4.0-10.5)
[2016-11-01 07:42] LABS: BUN/CREATININE RATIO 19.23; CREATININE SERUM 1.3 mg/dL (0.6-1.4); GLOM FILT RATE Estimated 66.4 mL/min (>60); POTASSIUM 4.5 mmol/L (3.5-5.1)
[2016-11-02 06:46] LABS: INR 1.1; PARTIAL THROMBOPLASTIN TIME 25.9 SECONDS (23.5-31.3); PROTHROMBIN TIME (PATIENT) 11.8 SECONDS (9.6-11.5)
[2016-11-02 06:54] LABS: BUN/CREATININE RATIO 17.69; CALCIUM SERUM 8.9 mg/dL (8.4-10.2); CREATININE SERUM 1.3 mg/dL (0.6-1.4); GLOM FILT RATE Estimated 66.4 mL/min (>60); POTASSIUM 4.3 mmol/L (3.5-5.1)
[2016-11-02 18:17] LABS: HEMATOCRIT 45.7 % (38.0-50.0); HEMOGLOBIN 14.7 gm/dL (13.0-16.0); MEAN CELL VOLUME 89.8 FL (83-96); MEAN CORPUSCULAR HEMOGLOBIN 28.8 PG (28-34); MEAN PLATELET VOLUME 9.3 FL (6.5-11.5); RED BLOOD COUNT 5.1 X10e (3.90-5.60); RED CELL DISTRIBUTION WIDTH 14.3 % (11.0-15.5); WHITE BLOOD COUNT 10.3 X10e3 (4.0-10.5)
[2016-11-02 19:00] LABS: ANGIO %MB 9.7 % (0.0-4.0); ANGIO MB 13.1 ng/ml
[2016-11-03 03:25] LABS: BASOPHIL# 0.1 X10e3 (0-0.3); BASOPHIL% 0.6 % (0-2.5); EOSINOPHIL# 0.2 X10e3 (0-0.7); EOSINOPHIL% 1.4 % (0.0-7.0); LYMPHOCYTE# 1.1 X10e3 (1.0-3.5); LYMPHOCYTE% 10.2 % (17.0-45.0); MEAN CELL VOLUME 89.7 FL (83-96); MEAN CORPUSCULAR HEMOGLOBIN 28.5 PG (28-34); MEAN CORPUSCULAR HGB CONC 31.7 g/dL (30-36); MEAN PLATELET VOLUME 9.1 FL (6.5-11.5); MONOCYTE# 0.9 X10e3 (0-1.0); MONOCYTE% 8.8 % (3.0-12.0); NEUTROPHIL# 8.5 X10e3 (1.5-7.1); PLATELET COUNT 261 X10e3 (140-420); RED CELL DISTRIBUTION WIDTH 14.2 % (11.0-15.5); WHITE BLOOD COUNT 10.7 X10e3 (4.0-10.5)
[2016-11-03 03:30] LABS: DIFF IND NO
[2016-11-03 03:50] LABS: CHOLESTEROL 129 mg/dL (0-200); HDL CHOLESTEROL 31 mg/dL (29-75); LDL CHOLESTEROL 83 mg/dL ([, -130]); LDL/HDL RATIO 3 RATIO (0-4); TRIGLYCERIDES 75 mg/dL (10-160)
[2016-11-03 04:06] LABS: ANGIO MB 22.8 ng/ml
[2016-11-03 04:07] LABS: ALBUMIN SERUM 3.1 g/dL (3.5-5.0); BILIRUBIN,TOTAL 0.8 mg/dL (0.2-2.0); BUN/CREATININE RATIO 22.72; CALCIUM SERUM 8.6 mg/dL (8.4-10.2); CREATININE SERUM 1.1 mg/dL (0.6-1.4); GLOM FILT RATE Estimated 81.2 mL/min (>60); POTASSIUM 3.8 mmol/L (3.5-5.1); PROTEIN TOTAL SERUM 6.1 g/dL (6.0-8.3)
[2016-11-04 06:39] LABS: CALCIUM SERUM 8.6 mg/dL (8.4-10.2); GLOM FILT RATE Estimated 91.1 mL/min (>60); POTASSIUM 3.8 mmol/L (3.5-5.1)
[2016-11-04 07:58] LABS: HA AB IGM (HEPPAN) Nonreactive (()); HB CORE AB IGM (HEPPAN) Nonreactive (Nonreactive); HB S AG (HEPPAN) Nonreactive (Nonreactive); HEP C AB (HEPPAN) Nonreactive (Nonreactive); HEP C AB SIGNAL TO CUTOFF 0.05 ratio (<1.00)
[2016-11-04] MEDS ORDERED: ENTRESTO 24 MG1 EACH (16:21)
[2016-11-04] MEDS ORDERED: LASIX PO (16:22)
[2016-11-04] MEDS ORDERED: METOPROLOL TART25 MG PO (16:22)
[2016-11-04] MEDS ORDERED: NITROSTAT0.4 MG SL (16:23)
[2016-11-04] MEDS ORDERED: ALDACTONE25 MG PO (16:24)
[2016-11-04] MEDS ORDERED: CLOPIDOGREL75 MG PO (16:24)
[2016-11-04] MEDS ORDERED: ASPIRIN81 M2 PO (16:24)
[2016-11-04] MEDS ORDERED: K-DUR20 ME2 PO (16:25)
[2016-11-04] MEDS ORDERED: LIPITOR40 MG PO (16:25)
== END 2016-11-04 18:10 | disposition home or self-care (01) | DRG 247 ==
LOC: SED 21:07 → SEDOF 23:07 → C5C 23:07 → SED 23:07 → C5C 23:07 → SEDOF 10-30 00:57 → C5C 10-30 01:30 → SEDOF 10-30 01:30 → C5C 10-30 08:37
PROVIDERS: Emergency Medicine; Internal Medicine; Internal Medicine Cardiovascular Disease
PROC: B246ZZZ Ultrasonography of Right and Left Heart (ICD-10-PCS; principal; 2016-10-30)
PROC: 027236Z Dilation of Coronary Artery, Three Arteries with Three Drug-eluting Intraluminal Devices, Percutaneous Approach (ICD-10-PCS; 2016-10-31)
PROC: 4A023N7 Measurement of Cardiac Sampling and Pressure, Left Heart, Percutaneous Approach (ICD-10-PCS; 2016-10-31)
PROC: B211YZZ Fluoroscopy of Multiple Coronary Arteries using Other Contrast (ICD-10-PCS; 2016-10-31)
PROC: B215YZZ Fluoroscopy of Left Heart using Other Contrast (ICD-10-PCS; 2016-10-31)
DX: I11.0 Hypertensive heart disease with heart failure (principal); I27.2 Other secondary pulmonary hypertension; T82.898A Other specified complication of vascular prosthetic devices, implants and grafts, initial encounter; E11.65 Type 2 diabetes mellitus with hyperglycemia; E44.1 Mild protein-calorie malnutrition; J44.9 Chronic obstructive pulmonary disease, unspecified; I10 Essential (primary) hypertension; E78.5 Hyperlipidemia, unspecified; I25.10 Atherosclerotic heart disease of native coronary artery without angina pectoris; Z79.84 Long term (current) use of oral hypoglycemic drugs; I08.0 Rheumatic disorders of both mitral and aortic valves; F17.210 Nicotine dependence, cigarettes, uncomplicated; I95.2 Hypotension due to drugs; T46.5X5A Adverse effect of other antihypertensive drugs, initial encounter; I50.21 Acute systolic (congestive) heart failure; Z91.19 Patient's noncompliance with other medical treatment and regimen; Z83.3 Family history of diabetes mellitus; Z82.49 Family history of ischemic heart disease and other diseases of the circulatory system; Z71.6 Tobacco abuse counseling; R74.0 Nonspecific elevation of levels of transaminase and lactic acid dehydrogenase [LDH]; Y71.8 Miscellaneous cardiovascular devices associated with adverse incidents, not elsewhere classified
CPT/HCPCS: 36415; 71010; 80048; 80053; 80061; 80074; 80076; 81003; 82550; 82553; 82947; 83036; 83735; 83880; 84443; 84484; 85025; 85027; 85347; 85610; 85730; 87040; 87517; 93005; 93306; 94640; 94760; 96374; 96375; 97116; 97161; 97165; 99285; C1725; C1760; C1769; C1874; C1887; C1894; G8978-GP; G8979-GP; G8980-GP; G8987-GO; G8988-GO; G8989-GO; J0461; J0696; J1265; J1644; J1650; J1815; J1940; J2250; J2270; J2405; J2920; J3010; J3475

== ENCOUNTER 2016-11-11 17:44 | Emergency (ER) | payer BC, MEDICARE ==
--- NOTE | ~2016-11-11 | CR72 ---
[facility] A Service of [facility] & [facility] RADIOLOGY TEXT RESULTS PATIENT: GEOVANNI ROA LOCATION: [facility] : [birth year] UNIT #: [id number] AGE: [address]: Akhil Mary MD SEX: M ORDER DR: [id number] [facility] [address] [place], [place] [address] [id number] MR#: [id number] Acc #: [id number] NAME: GEOVANNI ROA. : 1950 SEX: M STUDY DATE/TIME: 11/11/2016 18:27 UNIT: [facility] ROOM: STUDY DESCRIPTION: CR Chest Single View Portable Attending Physician: Akhil Mary M.D. Ordering Physician: Akhil Mary M.D. Primary Care Physician: Ta Simpson M.D. MEDICAL IMAGING REPORT This report is preliminary unless electronic signature is present EXAM Single view of the chest, dated 11/11/16, at 1827 hours. COMPARISON Single view chest, dated 11/11/16, at 1449 hours. HISTORY Chest pain, shortness of air for 5 days. FINDINGS Single view of the chest was obtained. Postoperative changes are noted with evidence of CABG. Midline sternotomy wires are seen. lungs appear to be relatively stable without any significant new cardiopulmonary disease. There appears to be peribronchial mild cuffing, particularly seen in the right hilum and in the bronchials extending distally. Mild bronchiectatic changes in this region cannot be excluded. It does not appear to have significantly worsened in appearance when compared to the prior study. There is some biapical pleural thickening and similar appearance to a lesser degree in bilateral upper lobes. Stable. No interval new patchy dense significant consolidation, pleural effusion, pneumothorax or lung mass. Stable borderline size heart. 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 Dictated by... Negro Fuentes M.D. THIS IS AN ELECTRONICALLY VERIFIED REPORT Negro Fuentes M.D. at 11/13/2016 8:33 PM CPR/jt [facility] A Service of [facility] & [facility] RADIOLOGY TEXT RESULTS PATIENT: GEOVANNI ROA LOCATION: [facility] #: [id number] : [birth year] UNIT #: [id number] AGE: [address]: Akhil Mary MD SEX: M ORDER DR: TD: 11/11/2016 23:02 JOB #: [id number] MEDICAL IMAGING REPORT Page 1 of 1 COPY
--- NOTE | ~2016-11-11 | EKG ---
PATIENT: GEOVANNI ROA UNIT #: [id number] Ventricular Rate: 71 BPM Atrial Rate: 71 BPM P-R Interval: 130 ms QRS Duration: 94 ms Q-T Interval: 394 ms QTC Calculation(Bezet): 428 ms P Powderhorn: 48 degrees Calculated R Powderhorn: -23 degrees Calculated T Powderhorn: 158 degrees Diagnosis Line: Normal sinus rhythm Diagnosis Line: Voltage criteria for left ventricular hypertrophy Diagnosis Line: Cannot rule out Septal infarct , age undetermined Diagnosis Line: Marked T wave abnormality, consider anterolateral Diagnosis Line: ischemia Diagnosis Line: Abnormal ECG Diagnosis Line: When compared with ECG of 03-NOV-2016 05:39, Diagnosis Line: Nonspecific T wave abnormality has replaced Diagnosis Line: inverted T waves in Inferior leads Diagnosis Line: Confirmed by AUSTIN RANGEL, [place] ([id number]) on Diagnosis Line: 11/12/2016 11:09:07 AM INTERPRETING MDJefferson HUTTON
[~2016-11-11 17:44] MED LIST changes: +ALDACTONE25 MG PO; +ASPIRIN81 M2 PO; +CLOPIDOGREL75 MG PO; +ENTRESTO 24 MG1 EACH; +GLUCOPHAGE500 MG PO; +K-DUR20 ME2 PO; +LASIX PO; +LIPITOR40 MG PO; +METFORMIN; +METOPROLOL TART25 MG PO; +NITROSTAT0.4 MG SL
[2016-11-11 18:31] LABS: BASOPHIL# 0.1 X10e3 (0-0.3); BASOPHIL% 0.9 % (0-2.5); EOSINOPHIL# 0.3 X10e3 (0-0.7); EOSINOPHIL% 4.3 % (0.0-7.0); HEMATOCRIT 44.3 % (38.0-50.0); HEMOGLOBIN 14.2 gm/dL (13.0-16.0); LYMPHOCYTE# 0.8 X10e3 (1.0-3.5); LYMPHOCYTE% 10.3 % (17.0-45.0); MEAN CELL VOLUME 89.6 FL (83-96); MEAN CORPUSCULAR HEMOGLOBIN 28.8 PG (28-34); MEAN CORPUSCULAR HGB CONC 32.2 g/dL (30-36); MEAN PLATELET VOLUME 9.4 FL (6.5-11.5); MONOCYTE# 0.6 X10e3 (0-1.0); MONOCYTE% 8.2 % (3.0-12.0); NEUTROPHIL% 76.3 % (40-75); PLATELET COUNT 270 X10e3 (140-420); RED BLOOD COUNT 4.94 X10e (3.90-5.60); RED CELL DISTRIBUTION WIDTH 14.8 % (11.0-15.5); WHITE BLOOD COUNT 7.8 X10e3 (4.0-10.5)
[2016-11-11 18:33] LABS: DIFF IND NO
[2016-11-11 18:45] LABS: POC - CKMB 1.7 ng/mL (0.0-7.9); POC - TROPONIN <0.05 ng/mL (<=0.05)
[2016-11-11 18:55] LABS: ALBUMIN SERUM 3.7 g/dL (3.5-5.0); BILIRUBIN, DIRECT 0.1 mg/dL (0.0-0.2); BILIRUBIN,INDIRECT 0.7 mg/dL (0.0-0.9); BILIRUBIN,TOTAL 0.8 mg/dL (0.2-2.0); BUN/CREATININE RATIO 20.83; CALCIUM SERUM 9.3 mg/dL (8.4-10.2); CREATININE SERUM 1.2 mg/dL (0.6-1.4); GLOM FILT RATE Estimated 73.1 mL/min (>60); MAGNESIUM 1.8 mg/dL (1.6-3.0); POTASSIUM 4.3 mmol/L (3.5-5.1); PROTEIN TOTAL SERUM 7.8 g/dL (6.0-8.3)
[2016-11-11 20:28] LABS: POC - CKMB 1.3 ng/mL (0.0-7.9); POC - TROPONIN <0.05 ng/mL (<=0.05)
== END 2016-11-11 21:10 | disposition home or self-care (01) ==
LOC: CED 17:44
PROVIDERS: Emergency Medicine
DX: J44.9 Chronic obstructive pulmonary disease, unspecified (principal); I25.10 Atherosclerotic heart disease of native coronary artery without angina pectoris; E78.5 Hyperlipidemia, unspecified; I10 Essential (primary) hypertension; Z95.1 Presence of aortocoronary bypass graft; Z88.8 Allergy status to other drugs, medicaments and biological substances; F17.200 Nicotine dependence, unspecified, uncomplicated
CPT/HCPCS: 36415; 71010; 80048; 80076; 82553; 82947; 83735; 83880; 84484; 85025; 93005; 94640; 96374; 99285; J2930